=== PATIENT | female | born 1960 | race Caucasian/White ===

== ENCOUNTER → 2018-06-08 | Outpatient (REF) | payer BC | LOC: M LAB LCGH 10:07 | DX: N84.1 Polyp of cervix uteri (principal) ==

== ENCOUNTER → 2023-05-14 | Outpatient (CLI) | payer BC | LOC: M RAD 07:04 | PROVIDERS: ATTEND Physician Assistant Medical | DX: J32.9 Chronic sinusitis, unspecified (principal) ==